=== PATIENT | female | born 1985 | race Caucasian/White ===

== ENCOUNTER 2018-05-15 22:32 | Emergency (ER) | payer BC, OTHER ==
[~2018-05-15] VITALS: Ht 165.1 cm; Wt 87.4 kg
[~2018-05-15 22:32] MED LIST: Motrin PO
[2018-05-16] MEDS ORDERED: FLEXERIL10 MG PO ×2 (01:13→01:20)
[2018-05-16 01:26] VITALS: BP 132/88
== END 2018-05-16 01:26 | disposition home or self-care (01) ==
LOC: EME 22:32
DX: M79.601 Pain in right arm (principal)
CPT/HCPCS: 73090; 93971; 99281; 99284